=== PATIENT | male | born 1965 | race Hispanic/Latino ===

== ENCOUNTER 2018-05-16 10:48 | Emergency (ER) | payer MEDICAID, OTHER ==
[2018-05-16 10:50] VITALS: BMI 27.5
[2018-05-16 10:52] VITALS: BP 119/67; PULSE 64; RESP 18; TEMP 97.3; O2SAT 99
--- NOTE | 2018-05-16 12:13 | ED PDOC ---
Lower Extremity Pain/Injury Time Seen by Provider: 05/16/18 11:45 Chief Complaint (Nursing): Lower Extremity Problem/Injury Chief Complaint (Provider): left knee injury History Per: Patient (52 y/o male here with left knee injury that occurred yesterday suddenly while running. Patient able to bear weight but notes difficulty extending knee.) Past Medical History Reviewed: Historical Data, Nursing Documentation, Vital Signs Vital Signs: Last Vital Signs Temp 97.3 F L 05/16/18 10:50 Pulse 64 05/16/18 10:50 Resp 18 05/16/18 10:50 BP 119/67 05/16/18 10:50 Pulse Ox 99 05/16/18 10:50 - Medical History PMH: Diabetes, HTN, Hypercholesterolemia - Family History Family History: States: No Known Family Hx - Home Medications Home Medications: Ambulatory Orders Medication Instructions Recorded Naproxen 375 mg PO Q8 PRN #21 tablet 05/16/18 - Allergies Allergies/Adverse Reactions: Allergies Allergy/AdvReac Type Severity Reaction Status Date / Time No Known Allergies Allergy Verified 05/16/18 11:33 Review of Systems ROS Statement: Except As Marked, All Systems Reviewed And Found Negative Physical Exam - Reviewed Nursing Documentation Reviewed: Yes Vital Signs Reviewed: Yes - Physical Exam Appears: Positive for: Well, Non-toxic, No Acute Distress Head Exam: Positive for: ATRAUMATIC, NORMAL INSPECTION, NORMOCEPHALIC Skin: Positive for: Normal Color, Warm, DRY Eye Exam: Positive for: EOMI, Normal appearance, PERRL ENT: Positive for: Normal ENT Inspection Neck: Positive for: Normal, Painless ROM Cardiovascular/Chest: Positive for: Regular Rate, Rhythm Respiratory: Positive for: CNT, Normal Breath Sounds Gastrointestinal/Abdominal: Positive for: Normal Exam, Soft Back: Positive for: Normal Inspection Extremity: Positive for: Normal ROM, Other (mild effusion noted left knee. Nontender. Able to flex and extend.) Neurological/Psych: Positive for: Awake, Alert, Normal Tone - ECG O2 Sat by Pulse Oximetry: 99 - Progress ED Course And Treament: Patient refused pain medications Placed in knee immobilizer and given crutch instructions. Disposition - Clinical Impression Clinical Impression: Knee injury - Patient ED Disposition Is Patient to be Admitted: No - Disposition Referrals: Romaine Mendoza MD [Staff Provider] - Disposition: Routine/Home Disposition Time: 12:14 Condition: FAIR Prescriptions: Naproxen 375 mg PO Q8 PRN #21 tablet PRN Reason: Pain, Moderate (4-7) Instructions: Knee Sprain (DC) Forms: [facility] ED School/Work Excuse
--- NOTE | 2018-05-16 15:45 | RAD ---
Date of service: 05/16/2018 PROCEDURE: Left Knee Radiographs. HISTORY: Posttraumatic pain. COMPARISON: None. FINDINGS: BONES: Normal. No fracture. JOINTS: Normal. No osteoarthritis. JOINT EFFUSION: No definite joint effusion identified. OTHER FINDINGS: None. IMPRESSION: No acute findings related to/ accounting for the clinical presentation.
== END 2018-05-16 12:59 | disposition home or self-care (01) ==
LOC: H.ER 10:48
DX: S89.92XA Unspecified injury of left lower leg, initial encounter (principal); Y93.02 Activity, running; E11.9 Type 2 diabetes mellitus without complications; I10 Essential (primary) hypertension